=== PATIENT | female | born 1985 | race American Indian/Alaskan Native ===

== ENCOUNTER 2017-02-12 06:07 | Inpatient (IN) | payer MEDICAID ==
[2017-02-12] MEDS ORDERED: WATER FOR IRRIG STERILE IR ONE (07:04)
--- NOTE | 2017-02-12 08:02 | Anesthesia Day of Surgery ---
Anesthesia Day of Surgery - Day of Surgery Patient Examined: Yes Patient H&P Reviewed: Yes Patient is NPO: Yes
--- NOTE | 2017-02-12 08:04 | Anesthesia Consultation ---
Anesthesia Consult and Med Hx Date of service: 02/12/17 - Airway Anesthetic Teeth Evaluation: Good ROM Head & Neck: Adequate (thick neck) Mental/Hyoid Distance: Inadequate Mallampati Class: Class II Intubation Access Assessment: Probably Good - Pulmonary Exam CTA: Yes (clear blbs) - Pre-Operative Health Status ASA Pre-Surgery Classification: ASA3 Proposed Anesthetic Plan: General - Pulmonary Hx Smoking: Yes ([place]IJ[place]) Hx Sleep Apnea: Yes (5YRS) - Cardiovascular System Hx Hypertension: Yes (7YRS) - Central Nervous System Hx Neuromuscular Disorder: Yes (OA) - Gastrointestinal Hx Gastroesophageal Reflux Disease: Yes - Other Systems Hx Obesity: Yes (BMI 53)
[2017-02-12] MEDS ORDERED: PEPCID IV SCH (08:11)
[2017-02-12 08:56] LABS: Basophils % (Auto) 0.5 % (0.0-1.8); Eosinophils % (Auto) 1.3 % (0.0-4.3); Hematocrit 40.5 % (30.3-42.9); Hemoglobin 13.9 gm/dl (10.1-14.3); Mean Corpuscular HGB Conc 34 % (30-34); Mean Corpuscular Hemoglobin 32 pg (28-32); Mean Corpuscular Volume 92 fl (79-97); Platelet Count 252 K/mm3 (140-440); Red Cell Distribution Width 12.2 % (13.2-15.2); White Blood Count 9.2 K/mm3 (4.5-11.0)
[2017-02-12] MEDS ORDERED: ANCEF/STERILE WATER 2 GM/20 ML IV NR (09:00)
[2017-02-12] MEDS ORDERED: TRANSDERM-SCOP TD NR (09:00)
[2017-02-12] MEDS ORDERED: NACL 0.9% 1000 ML 1,000 ML IV SCH (09:00)
[2017-02-12] MEDS ORDERED: LOVENOX SUB-Q NR (09:00)
[2017-02-12] MEDS ORDERED: FLAGYL 500 MG/100 ML 500 MG/100 ML BAG IV NR (09:00)
[2017-02-12] MEDS ORDERED: VERSED IV NR (09:00)
[2017-02-12 09:04] LABS: Alanine Aminotransferase 34 units/L (7-56); Albumin 3.3 g/dL (3.9-5); Albumin/Globulin Ratio 0.9 %; Alkaline Phosphatase 71 units/L (35-129); Anion Gap 17 mmol/L; Blood Urea Nitrogen 9 mg/dL (7-17); Calcium 8.9 mg/dL (8.4-10.2); Carbon Dioxide 24 mmol/L (22-30); Chloride 102.9 mmol/L (98-107); Glucose 86 mg/dL (65-100); Potassium 3.8 mmol/L (3.6-5.0); Sodium 140 mmol/L (137-145); Total Protein 6.8 g/dL (6.3-8.2)
[2017-02-12] MEDS ORDERED: ZEMURON IV ONE (09:37)
[2017-02-12] MEDS ORDERED: SUBLIMAZE ONE ×2 (09:37→13:17)
[2017-02-12] MEDS ORDERED: XYLOCAINE MPF 2% ONE (09:37)
[2017-02-12] MEDS ORDERED: DIPRIVAN 10 MG/ML IV ONE (09:37)
[2017-02-12] MEDS ORDERED: QUELICIN ONE (09:37)
[2017-02-12] MEDS ORDERED: XYLOCAINE 1% 20 mL ONE (09:40)
[2017-02-12] MEDS ORDERED: MARCAINE-EPI 0.5%-1:200,000 INFILTRATI ONE (09:41)
[2017-02-12] MEDS ORDERED: XYLOCAINE 1% 20 mL INFILTRATI ONE (09:54)
[2017-02-12] MEDS ORDERED: MARCAINE-EPI/PF 0.5%-1:200,000 INFILTRATI ONE (09:54)
[2017-02-12] MEDS ORDERED: NACL 0.9% IR ONE ×2 (09:54)
[2017-02-12] MEDS ORDERED: DECADRON ONE (10:59)
[2017-02-12] MEDS ORDERED: DILAUDID ONE (11:38)
[2017-02-12] MEDS ORDERED: ZOFRAN ONE (12:31)
[2017-02-12] MEDS ORDERED: ROBINUL ONE (12:32)
[2017-02-12] MEDS ORDERED: NEOSTIGMINE ONE (12:32)
[2017-02-12] MEDS: SUBLIMAZE IV PRN ×2 (13:26→13:46)
[2017-02-12] MEDS ORDERED: ZOFRAN IV PRN (13:31)
[2017-02-12] MEDS ORDERED: REGLAN IV PRN (13:31)
[2017-02-12] MEDS ORDERED: MYLICON PO PRN (13:31)
[2017-02-12] MEDS ORDERED: DILAUDID IV PRN (13:33)
--- NOTE | 2017-02-12 13:38 | Operative Report ---
Operative Report Operative Report: Operative Report DATE OF PROCEDURE: 02/12/2017 SURGEON: Som Macias M.D. BASS FISHER: David Vernon MD PREOPERATIVE DIAGNOSIS: Morbid obesity. POSTOPERATIVE DIAGNOSES: Morbid obesity PROCEDURES PERFORMED: 1. Laparoscopic gastric bypass. 2. EGD. ANESTHESIA: General endotracheal tube intubation. SPECIMENS: None. ESTIMATED BLOOD LOSS: Less than 10 mL. FINDINGS: Normal anatomy. COMPLICATIONS: None. INDICATION: is a 31-year-old female with history of morbid obesity. She signed informed consent and expressed understanding of risks and benefits. DESCRIPTION OF PROCEDURE: Patient was brought to the OR suite, laid in supine position. Bilateral lower extremity SCDs were placed. General anesthesia was induced via successful endotracheal tube intubation. Patient's abdomen was prepped and draped in sterile fashion. Using Optiview technique, a 12-mm trocar was placed into the abdominal cavity under direct vision. There was noted to be no gross injury to any intraabdominal structures. 5 working trocars were placed under direct visualization, 12 mm in the right mid abdomen mid clavicular line and four 5-mm trocars in the right upper quadrant, epigastric, left upper quadrant and left mid abdomen. At this time, the ligament of Treitz identified and followed down approximately 30 cm and the jejunum was transected. The distal segment of jejunum was then traced for approximately 75 cm and a stable [id number] jejunojejunostomy was performed. The common enterotomy was closed with 2 firings of the endoscopic stapler. The mesenteric defect was closed with running Surgidac suture. This anastomosis was found to be patent without kink, obstruction or bleeding. At this time, the patient was placed in steep reverse Trendelenburg position. A liver retractor was placed through the epigastric port to elevate the left lateral lobe of the liver. A small gastric pouch was formed. The Claudia limb was then brought in an antegastric antecolic fashion and secured with 2 stay sutures to the gastric pouch. After this, the enterotomies were made with Harmonic scalpel, and a qdvy-[id number] stapled gastrojejunostomy was performed with a mechanical stapler. After this, a 2-layer running closure using V-loc suture were done, the first being mucosal approximation prior to completion of the first layer. The anesthesia passed and an EGD scope beyond the anastomosis to act as a stent. The first layer was completed, the second was then performed. After this, the EGD was retracted slightly. A bowel clamp was placed in a proximal Claudia limb. The anastomosis was submerged under saline. Via intraluminal EGD insufflation, there was noted be no bubbles in the saline indicating an airtight anastomosis. There was noted to be no obstruction or bleeding intraluminally in the pouch or the anastomosis. At this time, the scope was removed. The saline was aspirated. Tiseel was placed over the anastomosis. All trocars were removed under direct visualization and the abdomen was then desufflated. The skin incisions were closed with 4-0 Monocryl followed by Dermabond dressings. Patient was awoken and taken to recovery in stable condition. All counts were correct.
[2017-02-12] MEDS ORDERED: APRESOLINE IV PRN (14:00)
--- NOTE | 2017-02-12 14:35 | Post Anesthesia Evaluation ---
- Post Anesthesia Evaluation Patient Participated: Yes Airway Patent: Yes Stable Respiratory Function: Yes Nausea/Vomiting: No Temp > 96.8F: Yes Pain Manageable: Yes Adequeate Hydration: Yes Anesthesia Complications: No Block Receding Appropriately: Not Applicable Patient on Ventilator: No
[2017-02-12] MEDS: TORADOL IV SCH ×2 (15:02→20:00)
[2017-02-12] MEDS: LACTATED RINGERS 1,000 ML IV SCH ×2 (15:03→23:36)
[2017-02-12] MEDS: DILAUDID IV PRN ×3 (16:26→23:01)
[2017-02-12] MEDS: FLAGYL 500 MG/100 ML 500 MG/100 ML BAG IV SCH ×3 (16:40→23:38)
--- NOTE | 2017-02-12 16:43 | Post Anesthesia Evaluation ---
- Post Anesthesia Evaluation Patient Participated: Yes Airway Patent: Yes Stable Respiratory Function: Yes Temp > 96.8F: Yes Pain Manageable: Yes Adequeate Hydration: Yes Anesthesia Complications: No Block Receding Appropriately: Not Applicable
--- NOTE | 2017-02-12 17:21 | Admit Criteria Form ---
<DERIK DIANE - Last Filed: 02/12/17 17:21> Admission Criteria Documentation: AMBULATORY SURGERY EXCEPTION CRITERIA Ambulatory Surgery Exception Criteria ( Place 'X' for any and all applicable criteria): Surgery or procedure performed on ambulatory basis may require inpatient stay for[A] ANY ONE of the following(1)(2)(3)(4)(5)(6)(7)(8)(9): [X] I. A preoperative situation, condition, or finding that warrants inpatient stay as indicated by ANY ONE of the following: [] a) Inpatient care needed because of severity of a disease or condition rather than the surgery (eg, severe cardiac or respiratory disease, severe infection) (15) (16 ) (17) (18) [] b) Emergent procedure (eg, angioplasty for acute ischemia)(19) [] c) Complex surgical approach or situation as indicated by ANY ONE of the following(3): [] i) Open approach needed instead of usual endoscopic, transcatheter, or other less invasive procedure [] ii) Difficult approach because of previous operation [] iii) Airway monitoring required after open neck procedures(20)(21) [] iv) Large mass requiring unusually extensive dissection [] v) Additional complicating feature requiring inpatient care (eg, drain management)(22(23): [X] d) Major surgery in a pt with high anesthetic risk as indicated by ANY ONE of the following (2)(3)(5)(7)(8): [X] i) ASA risk class III or higher (severe systemic disease impairing function) [D] [] ii) Advanced age (eg, older than 85 years)(14)(24) [] iii) Symptomatic heart failure(25) [] iv) Symptomatic asthma or COPD(8)(21) [] v) Morbid obesity with hemodynamic or respiratory problems(20)( 21)(26)(27) [] vi) Obstructive sleep apnea(20)(21) [] vii) Former premature infants who are younger than 60 weeks [] viii) High risk for severe postoperative abnormalities (eg, severe postoperative hypocalcemia after parathyroidectomy for severe hyperparathyroidism)(27)( 28) [] ix) Unstable angina(25) [] e) Drug-related risk requiring inpatient stay as indicated by ANY ONE of the following(5)(10)(14)(32)(33) [] i) Procedure requires discontinuing drugs or other therapy (eg , antiarrhythmic medication, antiseizure medication), which necessitates inpatient observation or treatment.(18)(31) [] ii) Major surgery and high risk drug use as indicated by ANY ONE of the following: [] 1) Active abuse of cocaine or similar drug [] 2) Monoamine oxidase inhibitor use [] 3) Other drug identified as posing risk [] f) Inadequate outpatient care situation as indicated by ANY ONE of the following(5)(10)(14)(32)(33) [] i) Patient lives remote from medical facility and procedure has urgent complication potential, and temporary nearby residence cannot be arranged [] ii) Patient will have postprocedure incapacitation and inadequate assistance at home, or alternative level of care cannot be arranged. [] iii) Patient will have long general anesthesia or procedure side effect resolution time, and competent person to stay with patient on first postoperative night at home or alternative level of care cannot be arranged. []iv) Other inadequate outpatient situation that cannot be handled by other means [] II. A perioperative event, condition, or finding that warrants inpatient stay as indicated by ANY ONE of the following (1)(2)(3): [] a) Inadequate physiologic recovery: cardiovascular, respiratory, or hemodynamic status not normal or near preoperative baseline(18) [] b) Hemodynamic instability [] c) Patient not alert with near normal or baseline mental status [] d) Temperature not normal or as expected and not appropriate for outpatient treatment of condition [] e) Ambulatory or appropriate activity level status not yet achieved post procedure [E](34)(35)(36) [] f) Operative site not appropriate (eg, unexpected or excessive drainage or bleeding) [] g) Postoperative effects not resolved or adequately managed (eg, significant pain or vomiting not appropriate for outpatient or next level of care)(10)(12) [] h) Complicating features requiring inpatient care as indicated by ANY ONE of the following(37): [] i) Severe complications of procedure (eg, bowel injury, airway compromise, vascular injury,severe hemorrhage) [] ii) Extensive (eg, dissection far beyond usual scope of procedure ) or prolonged (eg, 120 minutes beyond usual) surgery needed requiring inpatient postoperative care [] iii) Conversion to an open or complex procedure that requires inpatient care (eg, open vs laparoscopic cholecystectomy, abdominal vs vaginal hysterectomy)(38) [] iv) Comorbid condition or test result identified during or post procedure that requires inpatient care (7) [] v) Malignant hyperthermia(30) [] vi) Other complicating feature requiring inpatient care(22)(23) Inpatient stay may be needed until ALL of the following are present (1)(2)(3)(4) (5)(6)(10)(14)(33)(40): []a) Physiologic recovery: cardiovascular, respiratory, and hemodynamic status normal or near preoperative baseline []b) Hemodynamic stability []c) Patient alert, with near normal or baseline mental status []d) Temperature appropriate: patient afebrile or temperature appropriate for outpt treatment of condition []e) Activity level appropriate: ambulatory or appropriate activity level post procedure []f) Operative site appropriate as indicated by ALL of the following: []i) Site dry or with expected drainage []ii) Any blood noted is as expected for procedure. []g) Postoperative effects resolved or managed as indicated by ALL of the following: []i) Pain management appropriate for outpatient (or next level of) care(10) []ii) Minimal nausea and vomiting: if present, successfully treated with oral medication(12) []iii) Headache, dizziness, or drowsiness (if present) are mild. []h) Voiding status acceptable as indicated by ANY ONE of the following: []i) Voiding spontaneously []ii) No voiding but instructions given for follow-up in 6 to 8 hours []iii) Urinary catheter in place, and instructions given for follow-up []i) Complicating features requiring inpatient care manageable at a lower level of care(37) []j) Comorbid conditions manageable at a lower level of care(37) The original [employer] content created by [employer] has been revised. The portions of the content which have been revised are identified through the use of italic text or in bold, and [facility] has neither reviewed nor approved the modified material. All other unmodified content is copyright [employer]. Please see references footnoted in the original [employer] edition 2016 <DOLORES HOLM - Last Filed: 02/13/17 07:57> Admission Criteria Met: Yes
[2017-02-12] MEDS: ANCEF/NS 1 GM/50 ML 1 GM/50 ML BAG IV SCH (18:10)
[2017-02-13] MEDS: ANCEF/NS 1 GM/50 ML 1 GM/50 ML BAG IV SCH (01:06)
[2017-02-13] MEDS: TORADOL IV SCH ×3 (01:07→15:34)
[2017-02-13] MEDS: DILAUDID IV PRN ×3 (04:15→13:12)
[2017-02-13] MEDS ORDERED: DILAUDID PO PRN (06:00)
[2017-02-13] MEDS: FLAGYL 500 MG/100 ML 500 MG/100 ML BAG IV SCH (06:16)
[2017-02-13] MEDS: LACTATED RINGERS 1,000 ML IV SCH (08:59)
[2017-02-13] MEDS ORDERED: LOVENOX SUB-Q SCH (10:00)
[2017-02-13 11:18] LABS: Alanine Aminotransferase 40 units/L (7-56); Albumin 2.8 g/dL (3.9-5); Alkaline Phosphatase 58 units/L (35-129); Anion Gap 15 mmol/L; Blood Urea Nitrogen 8 mg/dL (7-17); Calcium 8.1 mg/dL (8.4-10.2); Carbon Dioxide 23 mmol/L (22-30); Chloride 104.1 mmol/L (98-107); Glucose 93 mg/dL (65-100); Potassium 3.4 mmol/L (3.6-5.0); Sodium 139 mmol/L (137-145); Total Protein 5.7 g/dL (6.3-8.2)
[2017-02-13 11:45] LABS: Basophils % (Auto) 0.2 % (0.0-1.8); Eosinophils % (Auto) 0.2 % (0.0-4.3); Hematocrit 35.9 % (30.3-42.9); Hemoglobin 11.9 gm/dl (10.1-14.3); Mean Corpuscular HGB Conc 33 % (30-34); Mean Corpuscular Hemoglobin 31 pg (28-32); Mean Corpuscular Volume 95 fl (79-97); Platelet Count 229 K/mm3 (140-440); Red Blood Count 3.79 M/mm3 (3.65-5.03); Red Cell Distribution Width 12.2 % (13.2-15.2); White Blood Count 10.6 K/mm3 (4.5-11.0)
--- NOTE | 2017-02-13 11:59 | Discharge Summary ---
Providers - Providers Date of Admission: 02/12/17 13:31 Date of discharge: 02/13/17 Attending physician: JAMES PETERSON 02/12/17 08:09 Consult to Anesthesiology [CONS] Routine Consulting Provider: ALYSA ANESTHESIA WINSTON XAVIER Reason For Exam: SURGERY TODAY Hospitalization Reason for admission: post op observation Condition: Stable Disposition: DISCHARGED TO HOME OR SELFCARE Core Measure Documentation - Palliative Care Palliative Care/ Comfort Measures: Not Applicable - Core Measures Any of the following diagnoses?: none Exam - Physical Exam Narrative exam: NAD Lungs CTA BL Heart RRR Abd soft, appropriate wound TTP, Wounds C/D/I AAOx3 - Constitutional Vitals: Temp Pulse Resp BP Pulse Ox 98.4 F 82 18 112/69 96 02/13/17 08:00 02/13/17 08:00 02/13/17 08:00 02/13/17 08:00 02/13/17 11:38 Plan Activity: advance as tolerated Diet: other (bariatric stage 1) Wound: keep clean and dry Special Instructions: no heavy lifting Follow up with: Brenna DING [Other] - 7 Days
[2017-02-13 13:25] VITALS: BP 122/81
== END 2017-02-13 16:00 | disposition home or self-care (01) | DRG 621 ==
LOC: OR 06:07 → 2B-SURG 13:31 → OBSVTOIN 16:31
PROVIDERS: ADMIT Surgery; ATTEND Surgery
PROC: 0D164ZA Bypass Stomach to Jejunum, Percutaneous Endoscopic Approach (ICD-10-PCS; principal; 2017-02-12)
DX: E66.01 Morbid (severe) obesity due to excess calories (principal); Z68.43 Body mass index [BMI] 50.0-59.9, adult; Z87.891 Personal history of nicotine dependence; I10 Essential (primary) hypertension; K21.9 Gastro-esophageal reflux disease without esophagitis
CPT/HCPCS: 36415; 80053; 85025; 94760; A4217; C9250; G0378; J0330; J0690; J1100; J1170; J1650; J1885; J2250; J2405; J2704; J2710; J2765; J3010; J7030; J7120